=== PATIENT | male | born 2000 | race Caucasian/White ===

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

== ENCOUNTER 2022-06-12 08:53 | Emergency (ER) | payer MEDICARE, MEDICAID ==
[~2022-06-12] VITALS: Ht 134.6 cm; Wt 94.9 kg
[2022-06-12] MEDS ORDERED: MIRT-10 PO (09:03)
[2022-06-12] MEDS ORDERED: FAMO40TA3 PO (09:03)
[2022-06-12 10:28] LABS: BASO # 0.1 10^3/uL (0.0-0.2); BASO % 0.8 % (0.0-1.0); EOS # 0.3 10^3/uL (0.0-0.5); EOS % 3.8 % (0.0-3.0); HEMATOCRIT 44.5 % (42.0-52.0); HEMOGLOBIN 15.3 g/dl (13.5-17.5); LYMPH # 2.7 10^3/uL (1.5-5.0); LYMPH % 31.8 % (24.0-44.0); MEAN CORPUSCULAR HEMOGLOBIN 27.9 pg (27.0-33.0); MEAN CORPUSCULAR HGB CONC 34.4 g/dl (32.0-36.5); MEAN CORPUSCULAR VOLUME 81.2 fl (80.0-96.0); MONO # 0.9 10^3/uL (0.0-0.8); MONO % 10.4 % (2.0-8.0); NEUTROPHILS # 4.4 10^3/uL (1.5-8.5); NEUTROPHILS % 52.7 % (36.0-66.0); PLATELET COUNT, AUTOMATED 256 10^3/uL (150-450); RED BLOOD COUNT 5.48 10^6/uL (4.30-6.10); WHITE BLOOD COUNT 8.4 10^3/uL (4.0-10.0)
[2022-06-12] MEDS ORDERED: ONDANSETRON 4MG 2ML VIAL IV ONE (10:45)
[2022-06-12] MEDS ORDERED: MORPHINE 4 MG/ML 1ML VIAL/SYRINGE IV ONE (10:45)
[2022-06-12] MEDS ORDERED: NS 1,000 ML IV ONE (10:45)
[2022-06-12] MEDS ORDERED: ISOVUE-370 76% 100ML VIAL As Ordered ONE (11:01)
[2022-06-12 11:03] LABS: ALBUMIN 3.8 GM/DL (3.2-5.2); BILIRUBIN,DIRECT 0.1 MG/DL (0.0-0.2); BILIRUBIN,TOTAL 0.5 MG/DL (0.2-1.0); TOTAL PROTEIN 6.7 GM/DL (6.4-8.2)
[2022-06-12] MEDS ORDERED: SUCRALFATE 1 GM TAB PO ONE (12:15)
[2022-06-12] MEDS ORDERED: PANTOPRAZOLE 40MG VIAL IV ONE (12:15)
[2022-06-12] MEDS ORDERED: GI COCKTAIL 50ML BTL(HYOSCYAMINE/MAALOX/LIDOCAINE VISCOUS)(1:3:1) PO ONE (12:15)
[2022-06-12] MEDS ORDERED: CARA1TAB6 PO (13:31)
[2022-06-12] MEDS ORDERED: OMEP40CA4 PO (13:31)
[2022-06-12] MEDS ORDERED: MIRA3350 PO (13:31)
[2022-06-12 13:39] VITALS: BP 126/69
== END 2022-06-12 14:01 | disposition home or self-care (01) ==
LOC: M ED 08:53
DX: K20.90 Esophagitis, unspecified without bleeding (principal); K59.00 Constipation, unspecified; R10.31 Right lower quadrant pain; Z88.9 Allergy status to unspecified drugs, medicaments and biological substances; Z79.899 Other long term (current) drug therapy
CPT/HCPCS: 74177; 80047; 80076; 83690; 85025; 96361; 96374; 96375; 99284; C9113; J2270; J2405; Q9967